=== PATIENT | male | born 1940 | race Caucasian/White ===

== ENCOUNTER 2022-05-09 12:40 | Emergency (ER) | payer BC, OTHER ==
[2022-05-09 14:14] LABS: HEMATOCRIT 34.1 % (35.4-49); HEMOGLOBIN 11.3 G/dL (11.7-16.9); MEAN CELL VOLUME 93.9 fl (80-96); PLATELET COUNT 244.5 10^3/uL (134-434); RBC 3.63 10^6/uL (4.00-5.60); RDW 14.8 % (11.9-15.9); WHITE BLOOD COUNT 9.5 10^3/uL (4.0-10.8)
[2022-05-09 14:16] LABS: INR 1.33 (0.83-1.09); PROTHROMBIN TIME (PATIENT) 15.3 SEC (9.7-13.0)
[2022-05-09 14:19] LABS: ACTIVATED PTT 38.3 SECONDS (25.2-36.5)
[2022-05-09 14:22] LABS: ALBUMIN 3.3 g/dl (3.4-5.0); BILIRUBIN,TOTAL 0.6 mg/dl (0.2-1); CALCIUM 10.1 mg/dl (8.5-10); TOT PROT 6.3 g/dl (6.4-8.2)
[2022-05-09 14:30] LABS: EPITHELIAL CELLS FEW /hpf; URINE HYALINE CAST 0-2 /lpf
[2022-05-09 14:46] VITALS: TEMP 97.9; BMI 20.6
[2022-05-09] MEDS ORDERED: ASPIRIN 81 MG CHEWABLE TABLETS PO ONE (15:53)
[2022-05-09] MEDS ORDERED: APIXABAN 5 MG TABLET PO ONE (15:54)
[2022-05-09] MEDS ORDERED: ATORVASTATIN CA 80 MG TABLET (FP) PO ONE (15:56)
[2022-05-09] MEDS ORDERED: ASPIRIN 81 MG CHEWABLE TABLETS ONE (16:04)
[2022-05-09 17:30] VITALS: BP 110/68; PULSE 75; RESP 16
== END 2022-05-09 16:00 | disposition left against medical advice (07) ==
LOC: FER 12:40
DX: R47.81 Slurred speech (principal); R41.0 Disorientation, unspecified
CPT/HCPCS: 0241U-QW; 36415; 70450-TC; 80053; 81003; 81015; 85027; 85610; 85730; 87077; 87086; 93005; 99285-25

== ENCOUNTER 2022-06-19 10:36 | Emergency (ER) | payer OTHER ==
[2022-06-19] MEDS ORDERED: SODIUM CHLORIDE 1,000 ML IV STA (10:57)
[2022-06-19 11:24] VITALS: BMI 20.3
[2022-06-19 11:24] LABS: BASO % 0.5 % (0-2.0); EOS % 1.1 % (0-4.5); HEMATOCRIT 33.2 % (35.4-49); HEMOGLOBIN 11.1 GM/dL (11.7-16.9); LYMPH % 14.3 % (8-40); MCH 30.7 pg (25.7-33.7); MCHC 33.4 g/dl (32.0-35.9); MEAN CELL VOLUME 92.1 fl (80-96); MEAN PLT VOLUME 10.1 fl (7.5-11.1); NEUT % 79.1 % (42.8-82.8); PLATELET COUNT 145 10^3/uL (134-434); RBC 3.61 M/mm3 (4.00-5.60); RDW 15.5 % (11.9-15.9); WHITE BLOOD COUNT 7.4 K/mm3 (4.0-10.0)
[2022-06-19 11:30] LABS: INR 1.5 (0.83-1.09); PROTHROMBIN TIME (PATIENT) 17.3 SEC (9.7-13.0)
[2022-06-19 11:32] LABS: ACTIVATED PTT 33.6 SECONDS (25.2-36.5)
[2022-06-19] MEDS ORDERED: VASOPRESSIN 40 UNITS/100 ML BAG IV SCH (11:45)
[2022-06-19 11:53] LABS: CALCIUM 9.6 mg/dL (8.5-10.1)
[2022-06-19 11:54] LABS: ALBUMIN 3.6 g/dl (3.4-5.0)
[2022-06-19 11:57] LABS: CREATININE 2.7 mg/dL (0.55-1.3)
[2022-06-19 11:59] LABS: BILIRUBIN,TOTAL 0.7 mg/dL (0.2-1); TOT PROT 6.5 g/dl (6.4-8.2)
[2022-06-19 12:33] LABS: VENOUS BASE EXCESS -1.2 mmol/L (-2-2); VENOUS O2 SATURATION 49.4 % (70-80); VENOUS PCO2 51.3 mmHg (38-52); VENOUS PH 7.314 (7.310-7.410)
[2022-06-19 12:37] LABS: EPI CELLS 6 /uL (0-25.1); HYALINE CASTS 2 /uL (0-3.1); PH,URINE 5.5 (5.0-8.0); URINE APPEARANCE CLEAR; URINE BACTERIA 3 /uL (0-1359); URINE BILIRUBIN NEGATIVE (NEGATIVE); URINE COLOR YELLOW; URINE GLUCOSE (UA) NEGATIVE (NEGATIVE); URINE KETONE NEGATIVE (NEGATIVE); URINE LEUK ESTERASE 1+ (NEGATIVE); URINE NITRITE NEGATIVE (NEGATIVE); URINE PROTEIN NEGATIVE (NEGATIVE); URINE RBC 22 /uL (0-23.9); URINE UROBILINOGEN 0.2 mg/dL (0.2-1.0); URINE WBC 50 /uL (0-25.8)
[2022-06-19 12:42] LABS: LACTIC ACID 3.2 mmol/L (0.4-2.0)
[2022-06-19] MEDS ORDERED: DIPHTH,PERTUSS(ACELL),TET 0.5 ML DISP.SYRIN IM ONE ×2 (13:00→13:01)
[2022-06-19 15:55] VITALS: BP 131/82; PULSE 79; RESP 18; TEMP 98.5
== END 2022-06-19 15:45 | disposition short-term general hospital (02) ==
LOC: JER 10:36
PROC: 0HQ0XZZ Repair Scalp Skin, External Approach (ICD-10-PCS; principal; 2022-06-19)
PROC: 3E0337Z Introduction of Electrolytic and Water Balance Substance into Peripheral Vein, Percutaneous Approach (ICD-10-PCS; 2022-06-19)
PROC: 3E0234Z Introduction of Serum, Toxoid and Vaccine into Muscle, Percutaneous Approach (ICD-10-PCS; 2022-06-19)
DX: I21.3 ST elevation (STEMI) myocardial infarction of unspecified site (principal); S01.01XA Laceration without foreign body of scalp, initial encounter; W19.XXXA Unspecified fall, initial encounter
CPT/HCPCS: 0241U-QW; 36415; 70450-TC; 71045-TC-FY; 72125-TC; 80053; 81003; 82550; 82553; 82803; 83605; 84484; 85025; 85610; 85730; 86850; 86900; 86901; 87040; 87086; 90715; 93005; 93010; 99291